=== PATIENT | female | born 1950 | race Caucasian/White ===

== ENCOUNTER 2023-10-22 01:59 | Day surgery (SDC) | payer MEDICARE, SELFPAY ==
[2023-10-11 14:55] VITALS: BMI 24.0
--- NOTE | 2023-10-11 15:17 | PC.NURSE ---
Report to the Outpatient Waiting Room, entrance under the green pavilion located off [facility], at time __07 on date __10/22/23____. Planned Procedure Time: __914 . Time changes happen often and if your time is changed the preop area will call you the afternoon before. - You and your visitor will be asked to self-screen and do not enter if you have any COVID symptoms. - A mask is optional within the hospital at this time. Patients may have clear liquids (water, carbonated beverages, clear teas, apple juice) until 3 hours prior to surgery (0616 AM) with a maximum of 20 ounces. - No food from midnight until time of surgery - Infants may have breast milk until 4 hours before surgery, formula 6 hours prior to surgery. - Children will be allowed to drink immediately following surgery. If applicable, please bring a bottle or sippy cup to assist with drinking. Juice, water, soda, and popsicles are readily available. For infants on formula, please bring formula the day of surgery. Pacifiers are allowed. Take the following medications with a SIP of water the morning of surgery: ____NONE DO NOT STOP ANY OF YOUR OTHER PRESCRIPTION MEDICATIONS PRIOR TO SURGERY ?EXCEPT THE FOLLOWING Medications to discontinue per ANESTHESIA - _VITAMINS/SUPPLEMENTS 3 DAYS PRIOR TO SURGERY, Date to take last dose__10/18/23 Please no make-up, nail liberian, hairspray, perfume, deodorant, or body powder the day of surgery. No jewelry (including any body piercings) or valuables the day of surgery, leave them at home. Please take a shower or bath the night before, or the morning of, surgery with an antibacterial soap. Wear comfortable, loose fitting clothing. Children are encouraged to wear pajamas. - Jewelry must be removed prior to entering the operating room. Rings and piercings that are not removed may be cut off. - The hospital will not accept responsibility for valuables. - Please leave all valuables, including medications, at home the day of surgery. If you are going home after surgery, a licensed cement mixer driver must drive you home. - NO public transportation without another adult if you receive anesthesia. - We recommend that an adult stay with you for 24 hours following discharge. - We also recommend that you do not drive, make important decision, drink alcoholic beverages, or take any drugs that were not prescribed by your health care provider for at least 24 hours after your discharge time. For Pediatric surgeries, we recommend two adults accompany the child home. Follow any additional instructions given to you from your surgeon. If you or anyone in your household have experienced Covid symptoms in the past week, please notify your surgeon or the nurse liaison at the phone number below for possible testing. Telephone instructions given to ____PT and asked if any additional questions and then verbalized understanding. Patient advised to call surgeon office or pre surgery nurse liaison [phone] if any additional questions.
--- NOTE | 2023-10-17 18:00 | PM.IMHP ---
H&P: HPI History of Present Illness Date/Time: 10/17/23 18:00 Chief Complaint: intrinsic sphincter deficiency Narrative: she is recurrent intrinsic sphincter deficiency. Her last injection of bulking agent was in May of 2020. She had like a repeat injection Review of Systems Review of Systems: All systems reviewed & are unremarkable except as noted in HPI and below PMFSH Social History Social History Smoking status: Never smoker Second hand tobacco smoke exposure: No Alcohol intake: never Substance use: never Substance use type: does not use Living arrangements: alone Spiritual care concerns: No Meds Home Medications and Allergies Home Medications Medication Instructions Recorded Confirmed Type Vitamin C 1 tab-cap DAILY 10/11/23 10/11/23 History acyclovir 800 mg tablet See Rx Instructions .Route .COMPLEX 10/11/23 10/11/23 History atorvastatin 40 mg tablet 40 mg DAILY 10/11/23 10/11/23 History calcium carbonate 600 mg-vitamin 1 tablet DAILY 10/11/23 10/11/23 History D3 5 mcg (200 unit) tablet hydrochlorothiazide 25 mg tablet 25 mg DAILY 10/11/23 10/11/23 History magnesium 200 mg tablet 400 mg PO DAILY 10/11/23 10/11/23 History meclizine 25 mg tablet See Rx Instructions .Route 10/11/23 10/11/23 History .COMPLEX PRN Vertigo multivitamin 1 tablet DAILY 10/11/23 10/11/23 History multivitamin 1 tablet PO DAILY 10/11/23 10/11/23 History pantoprazole 40 mg tablet,delayed 40 mg PO DAILY 10/11/23 10/11/23 History release potassium chloride 20 mEq oral 20 meq PO DAILY 10/11/23 10/11/23 History packet (Klor-Con) pramipexole 0.125 mg tablet 0.125 mg PO TID PRN RESTLESS LEG 10/11/23 10/11/23 History SYNDROME Allergies Allergy/AdvReac Type Severity Reaction Status Date / Time No Known Allergies Allergy Verified 10/11/23 14:46 Exam Narrative: no acute distress normal breathing alert oriented x3 intrinsic sphincter deficiency Assessment and Plan Assessment and plan (1) Intrinsic sphincter deficiency (ISD): Code(s): N36.42 - Intrinsic sphincter deficiency (ISD) Status: Acute Assessment and Plan: cystoscopy with injection of bulking agent. Understands risks of bleeding, infection, need for repeat procedures, urinary retention, lack of efficacy. She agrees to proceed
--- NOTE | 2023-10-22 05:21 | WPDHPUPDATE1 ---
History and Physical Update Update Date/Time: 10/22/23 05:21 History and Physical has been reviewed, including an updated exam of the patient. There are NO changes in the patient's condition. Risks, benefits, and alternatives have been discussed and questions answered. Patient agrees to proceed with procedure.
[2023-10-22 07:00] VITALS: BP 127/70; PULSE 62; RESP 14; TEMP 36.4; O2SAT 99
[2023-10-22] MEDS: LACTATED RINGERS 1,000 ML 30 ML IV CONT (07:00)
--- NOTE | 2023-10-22 07:33 | P.PNAN_ITS ---
Anes - Initial Pre Proc Eval Procedure: Operation Date: 10/22/23 08:00 Proposed Procedures p Cystoscopy, Injection Bulking Agent - Kyle David MD Date/Time: 10/22/23 07:33 Surgeon: Kyle David MD Pre Op Diagnosis: sensory urge incontinence Patient Data Age: 72 Gender: F Height: 1.55 m Weight: 57.9 kg Last Vital Signs Temp 97.6 F 10/22/23 07:00 Pulse 62 10/22/23 07:00 Resp 14 10/22/23 07:00 BP 127/70 10/22/23 07:00 Pulse Ox 99 10/22/23 07:00 O2 Del Method Room Air 10/22/23 07:00 Allergies Allergy/AdvReac Type Severity Reaction Status Date / Time No Known Allergies Allergy Verified 10/22/23 07:17 Home Medications Medication Instructions Recorded Confirmed Type Vitamin C 1 tab-cap DAILY 10/11/23 10/22/23 History acyclovir 800 mg tablet See Rx Instructions .Route .COMPLEX 10/11/23 10/11/23 History atorvastatin 40 mg tablet 40 mg DAILY 10/11/23 10/11/23 History calcium carbonate 600 mg-vitamin 1 tablet DAILY 10/11/23 10/22/23 History D3 5 mcg (200 unit) tablet hydrochlorothiazide 25 mg tablet 25 mg DAILY 10/11/23 10/11/23 History magnesium 200 mg tablet 400 mg PO DAILY 10/11/23 10/22/23 History meclizine 25 mg tablet See Rx Instructions .Route 10/11/23 10/11/23 History .COMPLEX PRN Vertigo multivitamin 1 tablet DAILY 10/11/23 10/22/23 History multivitamin 1 tablet PO DAILY 10/11/23 10/22/23 History pantoprazole 40 mg tablet,delayed 40 mg PO DAILY 10/11/23 10/11/23 History release potassium chloride 20 mEq oral 20 meq PO DAILY 10/11/23 10/22/23 History packet (Klor-Con) pramipexole 0.125 mg tablet 0.125 mg PO TID PRN RESTLESS LEG 10/11/23 10/11/23 History SYNDROME Patient hx anesthesia problems: none Family hx anesthesia problems: none Results Review: All pre-operative results and documents have been reviewed as part of the pre- operative evaluation. PMFSH Social History Social History Smoking status: Never smoker Second hand tobacco smoke exposure: No Alcohol intake: never Substance use: never Substance use type: does not use Living arrangements: alone Spiritual care concerns: No Anes - Eval Final PreProcedure Day of Procedure 10/22/23 07:33 Patient weight: normal Heart: regular rate and rhythm Lungs: clear to auscultation Airway: Mallampati scale and special considerations (Upper and lower dentures. ) Neurological: alert and oriented Last oral intake: >/= 8 hours Emergent: no Anesthetic plan: proceed Anesthesia type and monitoring: general LMA and standard monitoring Results Review: All pre-operative results and documents have been reviewed as part of the pre- operative evaluation. HTN, hyperlipidemia, very active without cp or sob. Informed Consent: The patient's anesthetic plan and its attendant risks and benefits were discussed with the patient/family/POA. Questions were solicited and answers provided to the satisfaction of the patient/family/POA.
[2023-10-22] MEDS: LIDOCAINE HCL 2% GEL UROJET 10 ML PKG MUCOUS MEM (07:51)
[2023-10-22] MEDS: ceFAZolin 2 GM/D5W 50 ML 2 GM/50 ML BAG IVPB (07:52)
--- NOTE | 2023-10-22 08:11 | W.PM.PROC2 ---
Procedure Note - Detailed Date of Procedure 10/22/23 Pre-op Diagnosis intrinsic sphincter deficiency Post-op Diagnosis Same Procedure Performed cystoscopy with suburethral injection of implant material Surgeon Kyle David MD Anesthesia MAC Indications this is a woman status post bulking agent several years ago. She has recurrent stress incontinence. She presents for repeat treatment. She understands risks of bleeding, infection, lack of efficacy, need for repeat procedures, urine retention requiring catheterization. She agrees to proceed Description of Procedure she is correctly identified. Informed consent obtained. From the operating room. She was given monitored anesthesia care. She was placed in dorsal thigh position. She was prepped draped sterile fashion. Time-out performed. Examination revealed good reduction of apical prolapse. Urethra was consistent with intrinsic sphincter deficiency. Cystoscopy revealed normal appearing bladder without abnormalities. No tumors or stones. No trabeculations. Ureteral orifices were normal. Urethra open consistent with intrinsic sphincter deficiency. There was evidence of prior bulking agent. I chose a site in the mid urethra. 2 cm distal bladder neck. I injected the bulking agent circumferentially. I used 1-1/2 syringe. There was good bulking effect. Her bladder was left partially full. She was awakened transferred to PACU in stable condition. Implants Bulking material Estimated Blood Loss 0 Drains No Packing No Pathology None sent Complications No immediate complications Condition Stable
[2023-10-22 08:13] VITALS: BP 125/71; PULSE 77; RESP 10; O2SAT 100
[2023-10-22 08:42] VITALS: BP 126/71; PULSE 65; RESP 20; O2SAT 96
[2023-10-22 08:55] VITALS: BP 144/86; PULSE 64; RESP 18
[2023-10-22 09:20] VITALS: BP 146/56; PULSE 64; RESP 18
== END 2023-10-22 09:33 | disposition home or self-care (01) ==
PROVIDERS: Visit Provider Urology
PROC: 3E0K8GC Introduction of Other Therapeutic Substance into Genitourinary Tract, Via Natural or Artificial Opening Endoscopic (ICD-10-PCS; CPT 51715; principal; 2023-10-22 08:00)
DX: N36.42 Intrinsic sphincter deficiency (ISD) (principal); N39.3 Stress incontinence (female) (male)
CPT/HCPCS: 51715; J0690; J2405; J2704; J3010; J7120; L8606